=== PATIENT | female | born 1975 | race Caucasian/White ===

== ENCOUNTER 2020-09-24 03:08 | Emergency (ER) | payer SELFPAY ==
[~2020-09-24] VITALS: Ht 152.4 cm; Wt 74.8 kg
[2020-09-24 03:26] VITALS: BP 133/80
--- NOTE | 2020-09-24 03:26 | NUR ---
TO BED AMBULATORY
--- NOTE | 2020-09-24 04:07 | NUR ---
PT TAKEN TO CT
--- NOTE | 2020-09-24 04:18 | NUR ---
PT RETURN FROM CT
--- NOTE | 2020-09-24 05:45 | NUR ---
Dr. Sorto examining patient.
--- NOTE | 2020-09-24 05:55 | NUR ---
45 YO/F BIB self w C/O pulsating headache/ neck pain 8/10 and n/v that began last night. Patient reports pain increases on side she lays on. Patient reports she took tylenol at home w/o relief of symptoms. Patient reports she vomited x3 times. Denies blood in vomit. Bowel sounds present in all quadrants. Denies current nausea. Patient AOX4. Patient sitting in bed locked in lowest position, x 1 side rail up for patient safety, NAD noted. PMH: Denies NKA
[2020-09-24] MEDS: ACETAMINOPHEN 325 MG TAB PO ONE (06:20)
[2020-09-24] MEDS: NACL 0.9% 500 ML IV ONE (06:22)
[2020-09-24] MEDS: METOCLOPRAMIDE 10 MG/2 ML INJ VIAL IVP ONE (06:23)
[2020-09-24] MEDS ORDERED: ACET-9496 PO (07:18)
--- NOTE | 2020-09-24 07:59 | NUR ---
CONSENT SIGNED BY PT FOR CT ANGIO OF HEAD AND NECK AND TRANSLATED BY BRAZILIAN PHONE, REF #[id number]
[2020-09-24 09:36] VITALS: BP 133/80
--- NOTE | 2020-09-24 09:37 | NUR ---
Patient discharged with v/s stable. Written and verbal after care instructions given MIGRAINES and explained. Patient alert, oriented and verbalized understanding of instructions. Ambulatory with steady gait. All questions addressed prior to discharge. ID band removed. Patient advised to follow up with PMD. Rx of TYNENOL EXCEDRIN 1TAB PO TID PRN PAIN [id number] given. Patient educated on indication of medication including possible reaction and side effects. Opportunity to ask questions provided and answered.
== END 2020-09-24 09:37 | disposition home or self-care (01) ==
LOC: MED 03:08
DX: R51.9 Headache, unspecified (principal); R11.2 Nausea with vomiting, unspecified
CPT/HCPCS: 70450; 99285; J2765; J7030